=== PATIENT | female | born 1970 | race Caucasian/White ===

== ENCOUNTER 2023-08-10 12:11 | Observation (INO) | payer OTHER, SELFPAY ==
[2023-08-10] VITALS (23 sets, daily range): BP systolic 124–153; BP diastolic 76–98; PULSE 85–103; RESP 14–20; TEMP 36.3–36.8; O2SAT 90–100
--- NOTE | ~2023-08-10 | XR_ITS ---
Portable chest x-ray Comparison: None Clinical History: Numbness Findings: Lungs are clear, without focal consolidation or pleural effusion. Cardiomediastinal silho uette is unremarkable. Bones and soft tissues are unremarkable. Impression: Normal chest. Reviewed, dictated and finalized at location . HANDISE DIRECTOR Impression: Normal chest.
--- NOTE | ~2023-08-10 | MR_ITS ---
MRI of the brain Clinical History: TIA Technique: Axial and sagittal T1-weighted images were acquired. These were followed by axial T2-weigh christine, diffusion weighted, gradient, and FLAIR images. Following intravenous administration of 13 cc Mu ltiHance gadolinium, T1-weighted fat-sat imaging was performed in the axial and coronal planes. Findings: There is no acute infarct, intracranial hemorrhage, or mass lesion. There are several small focal hyperintense white matter lesions in the periventricular white matter. Ventricles and subarachnoid spaces are unremarkable. Orbits are unremarkable. Paranasal sinuses and m astoid air cells are clear. Major intracranial flow voids are intact. Sagittal midline structures are intact. No abnormal postcontrast enhancement. IMPRESSION: Probable minimal chronic microvascular ischemic change. Demyelinating disease would be a potential al ternative consideration. No other significant findings. Reviewed, dictated and finalized at [facility]. GE PLANT ATTENDANT IMPRESSION: Probable minimal chronic microvascular ischemic change. Demyelinating disease w ould be a potential alternative consideration. No other significant findings.
--- NOTE | ~2023-08-10 | CT_ITS ---
EXAMINATION: CTA BRAIN/CAROTID DATE: 08/10/2023 13:38 INDICATION: Right facial numbness TECHNIQUE: Computed tomographic angiography (CTA) of the head and neck was performed with 100 mL Omni paque-350 intravenous contrast. Multiplanar reconstructions and maximum intensity projection 3D-recon structions of the carotid arteries and of the intracranial arteries were created by the technologist on a separate workstation. Precontrast CT of the head was also obtained. Automated exposure control and iterative reconstruction technique were employed.The dose-length product was 1663.66 mGy-cm. COMPARISON: None. FINDINGS: Carotid arteries: The visualized aortic arch antegrade vessels arising from the arch are normal in caliber with no diss ection or evident atherosclerotic plaque. There is no evident plaque with 0% stenosis of the right an d left carotid bulbs relative to normal distal artery lumen diameter (NASCET criteria). Cervical port ion of the bilateral vertebral arteries are codominant with no evident atherosclerotic plaque. Visual ized superior mediastinum and cervical soft tissues are unremarkable. Mild dependent atelectasis in t he bilateral upper lobes and superior segments of the lower lobes. Head: No acute intracranial hemorrhage, acute infarction or abnormal extra axial fluid collection. Ventricl es are normal and symmetric. No mass/mass effect. No abnormally enhancing brain lesions. Symmetric sm all amount of dystrophic calcification at the bilateral lentiform nuclei. The orbits, paranasal sinus es and mastoid air cells are normal. Intracranial arteries: Small amount of atherosclerotic plaque at the bilateral carotid siphons greater on the right where th ere is up to 30% stenosis. There is no hemodynamically significant stenosis in the vertebral, basilar and internal carotid arteries. Vertebral arteries are codominant. There are no aneurysms identified. Both A1 and P1 segments are patent. There also appear to be very small patent anterior communicatin g and bilateral posterior communicating arteries. Cerebral arterial arborization appears symmetric. IMPRESSION: 1. No evident atherosclerotic plaque with 0% stenosis of the right and left carotid bulbs relative to normal distal artery lumen diameter (NASCET criteria). 2. Small amount of nonhemodynamically significant atherosclerotic plaque at the bilateral carotid sip hons. Otherwise unremarkable cerebral CT angiogram. 3. Normal aging brain with no acute intracranial process. Reviewed, dictated and finalized at location A. ING MIXER SUPERVISOR IMPRESSION: 1. No evident atherosclerotic plaque with 0% stenosis of the right and left car otid bulbs relative to normal distal artery lumen diameter (NASCET criteria). 2. Small amount of nonhemodynamically significant atherosclerotic plaque at the bilateral carotid siphons. Otherwise unremarkable cerebral CT angiogram. 3. Normal aging brain with no acute intracranial process.
--- NOTE | 2023-08-10 12:48 | ECG_ITS ---
Measurements Intervals [place] Rate: 90 P: 34 MN: 155 QRS: 26 QRSD: 76 T: 43 QT: 369 QTc: 453 Interpretive Statements SINUS RHYTHM NO PREVIOUS ECG AVAILABLE FOR COMPARISON Electronically Signed On 08-11-2023 13:21:20 SCHOOL TRANSPORTATION DIRECTOR by Rosa Isela Toure M.D.
[2023-08-10 13:13] LABS: Basophils Percent Auto 0.6 % (0.2-1.2); Eosinophils Absolute Auto 0.1 K/mm3 (0-0.3); Hematocrit 41.9 % (37.0-47.0); Hemoglobin 13.9 g/dL (12.0-15.0); Immature Granulocyte Absolute 0.02 K/mm3 (0.00-0.031); Immature Granulocyte Percent A 0.3 % (0-0.5); Lymphocytes Absolute Auto 1.73 K/mm3 (0.9-3.2); Lymphocytes Percent Auto 24.4 % (18.3-44.2); Mean Corpuscular HGB Conc 33.2 g/dl (32-36); Mean Corpuscular Hemoglobin 29.3 pg (26-34); Mean Corpuscular Volume 88.2 fl (80-100); Mean Platelet Volume 11.1 fl (7.4-10.4); Monocytes Absolute Auto 0.5 K/mm3 (0.1-0.6); Monocytes Percent Auto 6.6 % (2.6-8.5); Neutrophils Absolute Auto 4.7 K/mm3 (1.3-6.7); Neutrophils Percent Auto 66.1 % (45.5-73.1); Platelet Count Result 194 k/mm3 (150-375); Red Blood Count 4.75 M/mm3 (4.2-5.4); Red Cell Distribution Width 12.3 % (11.5-14.5); White Blood Count 7.1 K/mm3 (4.5-10.0)
[2023-08-10 13:25] LABS: INR 0.9; Prothrombin Time 12.8 Seconds (11.1-14.7)
--- NOTE | 2023-08-10 13:25 | ED.NEUROSD ---
HPI - Neuro Symptoms/Deficit General Chief Complaint: Neuro Symptoms/Deficit Stated Complaint: neuro sx Time Seen by Provider: 08/10/23 12:19 History of Present Illness HPI Narrative: patient is a 52-year-old female who presents to ER with concerns of stroke-like symptoms. Just prior to arrival patient had sudden onset right facial numbness as well as dizziness. Patient still experiencing some tingling to her right face. No facial droop. No slurred speech. No drift in arm or leg. See NIH stroke scale for full assessment. Patient reports similar symptoms back in December of this year when she was diagnosed with diabetes. Patient also endorses some mild tingling to her feet bilaterally the been ongoing for the last couple days. She is due for another is Injection today. Related Data Allergies Allergy/AdvReac Type Severity Reaction Status Date / Time clindamycin Allergy Hives Verified 08/10/23 12:23 Penicillins Allergy Hives Verified 08/10/23 12:23 Review of Systems Review of Systems: All systems reviewed & are unremarkable except as noted in HPI and below Constitutional: Constitutional: Reports no additional constitutional complaints ENT: Reports system reviewed and no additional complaints, except as documented Cardiovascular: Cardiovascular: Reports no additional cardiovascular complaints Respiratory: Respiratory: Reports no additional respiratory complaints Gastrointestinal: Gastrointestinal: Reports no additional gastrointestinal complaints Musculoskeletal: Musculoskeletal: Reports no additional musculoskeletal complaints Neurologic: Reports dizziness, Denies syncope, Denies headache(s), Denies focal weakness and Reports numbness PMFSH Past Medical History Medical History (Updated 08/10/23 @ 19:41 by Choco Art MD) Type 2 diabetes mellitus Surgical History Surgical History (Updated 08/10/23 @ 19:38 by Choco Art MD) No pertinent past surgical history Exam Narrative: GENERAL: Well-appearing, well-nourished, and in no acute distress. HEAD: Normocephalic, atraumatic. EYES: PERRLA and EOMI. ENT: Mucous membranes moist. CHEST: Clear to auscultation. No respiratory distress. HEART: Regular rate and rhythm. No murmur heard. Normal peripheral pulses. ABDOMEN: Soft, nontender, nondistended. EXTREMITIES: Normal range of motion. No edema. SKIN: Warm, dry, no rash. NEURO: No focal deficits. see NIH stroke scale. Alert and oriented x3. Sharp and soft touch intact in the face bilateral impaired PSYCH: Normal mood and affect. Course Course Emergency Course: patient resting comfortably. Consulted neurology recommends admit for observation to tele. MRI to be ordered. Patient aware of diagnosis and treatment plan. Patient neck insert a candidate for tPA as symptoms have resolved and her NIH stroke scale was 0. Vital Signs Vital signs: Vital Signs Temperature 98 F 08/10/23 12:10 Pulse Rate 95 08/10/23 12:10 Respiratory Rate 18 08/10/23 12:10 Blood Pressure 151/94 H 08/10/23 12:10 Pulse Oximetry 100 08/10/23 12:10 Oxygen Delivery Room Air 08/10/23 12:10 Temperature 98.0 F 08/10/23 19:15 Pulse Rate 87 08/10/23 19:15 Respiratory Rate 19 08/10/23 19:15 Blood Pressure 141/90 H 08/10/23 19:15 Pulse Oximetry 99 08/10/23 19:15 Oxygen Delivery Room Air 08/10/23 12:10 MDM - Neuro Symptoms/Deficit Lab Data 08/10/23 13:08 08/10/23 13:24 Labs: Lab Results 08/10/23 08/10/23 Range/Units 13:08 13:24 WBC 7.1 (4.5-10.0) K/mm3 RBC 4.75 (4.2-5.4) M/mm3 Hgb 13.9 (12.0-15.0) g/dL Hct 41.9 (37.0-47.0) % MCV 88.2 (80-100) fl MCH 29.3 (26-34) pg MCHC 33.2 (32-36) g/dl RDW 12.3 (11.5-14.5) % Plt Count 194 (150-375) k/mm3 MPV 11.1 H (7.4-10.4) fl Immature Gran % (Auto) 0.3 (0-0.5) % Neut % (Auto) 66.1 (45.5-73.1) % Lymph % (Auto) 24.4 (18.3-44.2) % [place] %
[2023-08-10 13:26] LABS: Partial Thromboplastin Time 26.1 SECONDS (22.3-36.8)
[2023-08-10 13:26] LABS: Estimated CRCL calculation 99 ml/min; Estimated Glomerular Filt Rate > 60
--- NOTE | 2023-08-10 13:48 | PC.NURSE ---
Pt refusing Zofran. States she is not nauseated. Dr. Art aware
[2023-08-10 14:08] LABS: Alanine Aminotransferase 86 U/L (6-35); Albumin Level 3.9 g/dL (3.5-5.1); Alkaline Phosphatase 99 U/L (38-126); Anion Gap 8 mmol/L (8-16); Aspartate Amino Transferase 59 U/L (14-36); Bilirubin,Total 0.5 mg/dL (0.2-1.3); Blood Urea Nitrogen 16 mg/dL (7-17); Calcium 8.6 mg/dL (8.4-10.2); Carbon Dioxide 26 mmol/L (22-30); Chloride 103 mmol/L (98-107); Estimated CRCL calculation 120 ml/min; Estimated Glomerular Filt Rate > 60; Glucose 131 mg/dL (65-110); Potassium 4.2 mmol/L (3.4-5.0); Sodium 137 mmol/L (137-145)
[2023-08-10 14:20] LABS: Troponin I < 0.012 ng/mL (0.000-0.034)
--- NOTE | 2023-08-10 15:28 | PC.NURSE ---
No change in neuro checks. Pt resting with reg resp.
--- NOTE | 2023-08-10 17:10 | PC.NURSE ---
Dinner tray given.
--- NOTE | 2023-08-10 20:14 | PC.NURSE ---
1st encounter. pt report received from Sherron BRITO. pt in no acute distress or SOB, airway patent, breathing even/unlabored. pt normal sinus on cardiac rehabilitation specialist. pt awaiting admit bed. pt to receive MRI and US or chest tomorrow. pt aware of plan.
--- NOTE | 2023-08-10 21:09 | ADMGEN ---
This patient, Kylah Flores, was admitted to Medical Room 252-01. Patient/family oriented to hospital policies and general routines including ID bracelet, bed and alarms, visiting hours, pain management, procedures, bathroom and other care routines, personal items, smoking policy, room service/diet, and visiting hours. Information on how to activate the Rapid Response Team has been discussed. Patient/Family are encouraged to report perceived risks to care and to ask questions if they do not understand what they are told or what they should do.
--- NOTE | 2023-08-10 23:18 | PM.IMHP ---
H&P: HPI History of Present Illness Date/Time: 08/10/23 13:30 Chief Complaint: Right side numbness and tingling. Narrative: This is a very pleasant 52-year-old female with type 2 diabetes mellitus who presented to the emergency department via EMS for evaluation of right-sided numbness and tingling. The patient provides the following history. Not long prior to arrival to the ED she was walking down steps when she suddenly felt weak on the right side of her body with numbness and tingling as well. The vision her right eye seemed to be blurry and she felt a bit disoriented. She struggled getting up to steps due to weakness. Symptoms mainly resolved by the time she came to the emergency department however she now has paresthesias and what she describes as a tight feeling in her legs from mid sanchez down to the feet. She denies vertigo, facial droop, and difficulty speaking. No palpitations or sensations of racing heart. She had a similar episode of right-sided facial tingling in December of this year for which she was seen at [facility] in [place] but it does not sound as though she had a workup done at that time. Vital signs have been stable since arrival to the ED though she does have some blood pressures with systolics as high as the 140s. CMP and CBC were reviewed and are pretty unremarkable aside from a mild rise in AST and ALT. CTA of the head and neck showed no acute intracranial process, large vessel occlusion, or significant atherosclerotic disease. She is being admitted in this setting for further evaluation. Review of Systems Review of Systems: Twelve systems were reviewed. She was diagnosed with diabetes in 2017 admits that it was poorly controlled up until this spring. She has lost weight and her most recent hemoglobin A1c was 7.1%. She has historically not had issues with peripheral neuropathy. No back pain. She had cold symptoms about a week or so ago which is nearly resolved. Except as documented, all other systems were reviewed and are negative. [facility] Past Medical History Medical History (Updated 08/10/23 @ 23:[address] PA-C) Type 2 diabetes mellitus Surgical History Surgical History (Updated 08/10/23 @ 23:[address] PA-C) History of 2 sections History of exploratory laparotomy History of hysterectomy Family History Family History Father Congestive heart failure Mother Diabetes mellitus Sibling Diabetes mellitus Social History Social History (Updated 08/10/23 @ 23:[address] PA-C) Social History: Surrogate medical decision maker: Addison Flores, spouse. Code status: Full code. Smoking status: Never smoker Alcohol intake: never Substance use: never Lack of Transportation: No Lack of Food: Never True Current Housing: I Have Housing Concerned About Future Housing: No Difficulty Paying Gas/Electric Bills: No Difficulty Paying for Meds: No Currently Unemployed: No Education: Bachelor's Degree Difficulty w/ Childcare or Family Care: No Spiritual care concerns: No Meds Home Medications and Allergies Home Medications Medication Instructions Recorded Confirmed Type rosuvastatin 5 mg tablet 5 mg PO DAILY 08/10/23 08/10/23 History semaglutide 0.25 mg or 0.5 mg (2 0.5 mg subcut WEEKLY 08/10/23 08/10/23 History mg/3 mL) subcutaneous pen injector (Ozempic) Allergies Allergy/AdvReac Type Severity Reaction Status Date / Time clindamycin Allergy Hives Verified 08/10/23 12:23 Penicillins Allergy Hives Verified 08/10/23 12:23 Vital Signs Vital Signs - 24 hr 08/10/23 12:10 08/10/23 13:00 08/10/23 12:18 Temperature 98 F 98.2 F Pulse Rate 95 90 103 H Respiratory Rate 18 18 Blood Pressure 151/94 H 151/94 H Pulse Oximetry 100 100 Oxygen Delivery Room Air 08/10/23 12:30 08/10/23 13:44 08/10/23 13:57 Temperature Pulse Rate 91 94 88 Respiratory
[2023-08-11] VITALS: PULSE 97
[2023-08-11 04:00] VITALS: PULSE 83
[2023-08-11 04:23] VITALS: BP 120/76; PULSE 90; RESP 18; TEMP 36.4; O2SAT 96
[2023-08-11 06:10] LABS: Anion Gap 8 mmol/L (8-16); Blood Urea Nitrogen 11 mg/dL (7-17); Calcium 8.6 mg/dL (8.4-10.2); Carbon Dioxide 24 mmol/L (22-30); Chloride 104 mmol/L (98-107); Cholesterol 168 mg/dL (0-200); Estimated CRCL calculation 120 ml/min; Estimated Glomerular Filt Rate > 60; Glucose 122 mg/dL (65-110); HDL Direct 46 mg/dL; Magnesium 2.1 mg/dL (1.6-2.3); Potassium 3.6 mmol/L (3.4-5.0); Sodium 136 mmol/L (137-145); Triglycerides 117 mg/dL (<150)
[2023-08-11 06:21] LABS: LDL Cholesterol Direct 80 mg/dL
--- NOTE | 2023-08-11 07:27 | PM.IMPN ---
Progress Note: A&P Assessment and Plan (1) Right sided weakness: Code(s): R53.1 - Weakness Status: Acute Assessment and Plan: Brief episode of right sided weakness with lasting paraesthesia. CTA negative Brain MRI and ECHO pending Started on ASA 81 mg Lipid level pending B12 level pending--concerns for neuropathy. May need EMG as outpatient. A1C pending Neurology consult with rec's appreciated 08/11: Starting on plavix 75 mg PO daily, increased Crestor to 20 mg PO daily with LDL goal 65, ASA 81 mg daily. Ordered ECHO and waiting for that to be resulted. Awaiting neurology note with further rec's. Likely will d/c in the am as I suspect the ECHO results will not be posted tonight. Brain MRI shows probable minimal chronic microvascular ischemic changes. (2) Paresthesias: Code(s): R20.2 - Paresthesia of skin Status: Acute Assessment and Plan: checking B12 level, may need EMG as outpatient (3) Elevated blood pressure reading: Code(s): R03.0 - Elevated blood-pressure reading, without diagnosis of hypertension Status: Acute Assessment and Plan: Blood pressures initially 140/90s on admission 120-130's SBP the last 24 hours Monitor daily (4) Type 2 diabetes mellitus: Code(s): E11.9 - Type 2 diabetes mellitus without complications Status: Acute Assessment and Plan: On Semaglutide SSI, accu checks, and hypoglycemia protocol AC1 6.5% 08/11: She reports her A1c was 11% in December of this year. She has been very serious about her DM and her new A1c reflects this. Plan Feeding:DM diet Analgesia:norco Thromboembolic prophylaxis: scd Ulcer prophylaxis: na Glycemic control: SSI Bowel regimen: na Lines: PIV Antibiotics:na Disposition: home when medically ready Subjective Date/time seen: 08/11/23 07:27 Interval history: HPI obtained from the chart, This is a very pleasant 52-year-old female with type 2 diabetes mellitus who presented to the emergency department via EMS for evaluation of right-sided numbness and tingling. The patient provides the following history. Not long prior to arrival to the ED she was walking down steps when she suddenly felt weak on the right side of her body with numbness and tingling as well. The vision her right eye seemed to be blurry and she felt a bit disoriented. She struggled getting up to steps due to weakness. Symptoms mainly resolved by the time she came to the emergency department however she now has paresthesias and what she describes as a tight feeling in her legs from mid sanchez down to the feet. She denies vertigo, facial droop, and difficulty speaking. No palpitations or sensations of racing heart. She had a similar episode of right-sided facial tingling in December of this year for which she was seen at [facility] in [place] but it does not sound as though she had a workup done at that time. Vital signs have been stable since arrival to the ED though she does have some blood pressures with systolics as high as the 140s. CMP and CBC were reviewed and are pretty unremarkable aside from a mild rise in AST and ALT. CTA of the head and neck showed no acute intracranial process, large vessel occlusion, or significant atherosclerotic disease. She is being admitted in this setting for further evaluation. 08/11: Patient is doing well today. No further symptoms like when she presented. I spoke with her and her regarding TIA treatment is Crestor, aspirin, and Plavix. Review of Systems Review of Systems: All systems reviewed & are unremarkable except as noted in HPI and below Exam Narrative: General: well appearing, well developed, well nourished, appears stated age. HEENT: normocephalic, atraumatic. Mucous membranes moist. EOMI, PERRLA, bilateral sclera anicteric, no conjunctival injection. Neck supple without JVD, lymphadenopathy, or bruit. Respiratory: clear to auscultation bilaterally. No rale
[2023-08-11 08:31] LABS: Glucose Point of Care 132 mg/dl (65-105)
[2023-08-11] MEDS: ROSUVASTATIN 5 MG TABLET PO (09:55)
[2023-08-11] MEDS: ASPIRIN 81 MG ENTERIC TABLET PO (09:55)
[2023-08-11 11:17] LABS: Hemoglobin A1C 6.5 % (<5.7)
[2023-08-11 12:01] LABS: Glucose Point of Care 135 mg/dl (65-105)
[2023-08-11 13:52] LABS: Folic Acid 5.4 ng/mL (2.76->20)
[2023-08-11 14:13] VITALS: BP 117/75; PULSE 88; RESP 16; TEMP 36.3; O2SAT 98
[2023-08-11] MEDS: CLOPIDOGREL BISULFATE 75 MG TABLET PO (15:17)
[2023-08-11 17:06] LABS: Glucose Point of Care 138 mg/dl (65-105)
[2023-08-11 20:00] VITALS: PULSE 94; RESP 20; O2SAT 97
[2023-08-11 20:51] VITALS: BP 114/75; PULSE 94; RESP 20; TEMP 36.4; O2SAT 97
[2023-08-11 21:39] LABS: SARS-CoV-2 RNA PCR Negative (Negative)
--- NOTE | 2023-08-12 | ECHO_ITS ---
Patient Info Name: Kylah Flores Age: 52 years : 1970 Gender: Female Ht: 64 in Wt: 147 lbs BSA: 1.75 m2 HR: 82 bpm BP: 112 / 69 mmHg Heart Rhythm: Sinus Rhythm Technical Quality: Good Exam Date: 08/12/2023 10:46 AM Exam Location: Echo Lab Patient Status: Inpatient Admit Date: 08/10/2023 Staff Ordering Physician: Ivory Deutsch APRN Sales Support Rep: Maura Devine RDCS Attending Provider: Ubaldo Lamb MD Referring Physician: La Nena WHITLEY; Exam Type: CA echo doppler w bubble study Study Info Indications - TIA Complete two-dimensional, color flow and Doppler transthoracic echocardiogram is performed with agitated saline. Contrast/Agitated Saline Contrast/Ag. Saline: Agitated Saline Amount: 20.00 ml Summary 1. Left ventricular chamber dimension is normal. 2. Left ventricular systolic function is normal, estimated at 65-70%. 3. The left ventricular diastolic function is grade I diastolic dysfunction. 4. Right ventricular systolic function is normal. 5. Intact interatrial septum visualized by color flow and agitated saline imaging. Negative bubble study at both rest and with Valsalva. Left Ventricle Left ventricular chamber dimension is normal. Left ventricular systolic function is normal, estimated at 65-70%. There is no increased left ventricular wall thickness. The left ventricular diastolic function is grade I diastolic dysfunction. Right Ventricle Right ventricular chamber dimension is normal. Right ventricular systolic function is normal. Left Atria Left atrial chamber dimension is normal. Right Atria Right atrial chamber dimension is normal. Atrial Septum Intact interatrial septum visualized by color flow and agitated saline imaging. Negative bubble study at both rest and with Valsalva. Aortic Valve The aortic valve is trileaflet. There is no aortic valve stenosis. There is no aortic valve regurgitation. Pulmonic Valve The pulmonic valve is not well visualized. There is trace pulmonic regurgitation. Mitral Valve There is trace mitral valve regurgitation. Tricuspid Valve There is trace tricuspid valve regurgitation. Pericardium/Pleural There is no pericardial effusion. Inferior Vena Cava Normal inferior vena cava with >50% collapse upon inspiration consistent with normal right atrial pressure, 3 mmHg. Aorta The aortic root size at the sinus of Valsalva is normal. Left Ventricular Outflow Tract Name Value Normal LVOT 2D LVOT Diameter 1.8 cm LVOT Doppler LVOT Peak Gradient 3 mmHg LVOT Mean Gradient 2 mmHg LVOT VTI 19 cm LVOT VTI/AV VTI Ratio 0.9 LVOT Stroke Volume 51 ml LVOT CO 4.3 l/min LVOT CI 2.5 l/min/m2 Pulmonic Valve Name Value Normal RVOT Doppler RVOT
[2023-08-12 02:41] LABS: Glucose Point of Care 157 mg/dl (65-105)
[2023-08-12 04:46] VITALS: BP 112/69; PULSE 82; RESP 18; TEMP 36.3; O2SAT 97
[2023-08-12 06:08] LABS: Hematocrit 43.2 % (37.0-47.0); Hemoglobin 14.1 g/dL (12.0-15.0); Mean Corpuscular HGB Conc 32.6 g/dl (32-36); Mean Corpuscular Hemoglobin 28.7 pg (26-34); Mean Platelet Volume 11.9 fl (7.4-10.4); Platelet Count Result 189 k/mm3 (150-375); Red Blood Count 4.91 M/mm3 (4.2-5.4); Red Cell Distribution Width 12.3 % (11.5-14.5); White Blood Count 8.5 K/mm3 (4.5-10.0)
[2023-08-12 06:18] LABS: Anion Gap 7 mmol/L (8-16); Blood Urea Nitrogen 11 mg/dL (7-17); Calcium 8.9 mg/dL (8.4-10.2); Carbon Dioxide 28 mmol/L (22-30); Chloride 101 mmol/L (98-107); Estimated CRCL calculation 99 ml/min; Estimated Glomerular Filt Rate > 60; Glucose 122 mg/dL (65-110); Potassium 3.7 mmol/L (3.4-5.0); Sodium 136 mmol/L (137-145)
[2023-08-12 08:15] LABS: Glucose Point of Care 155 mg/dl (65-105)
[2023-08-12] MEDS: ROSUVASTATIN 20 MG TABLET PO (08:21)
[2023-08-12] MEDS: CLOPIDOGREL BISULFATE 75 MG TABLET PO (08:21)
[2023-08-12] MEDS: ASPIRIN 81 MG ENTERIC TABLET PO (08:21)
[2023-08-12 08:25] VITALS: RESP 18; O2SAT 97
[2023-08-12 09:42] VITALS: BP 137/86; PULSE 101; RESP 20; O2SAT 97
[2023-08-12 09:46] LABS: Glucose Point of Care 218 mg/dl (65-105)
[2023-08-12 11:53] LABS: Glucose Point of Care 176 mg/dl (65-105)
[2023-08-12 13:46] VITALS: BP 119/83; PULSE 93; RESP 18; TEMP 36.6; O2SAT 98
--- NOTE | 2023-08-12 15:07 | WPDNEURCNPN ---
Assessment and Plan Assessment and plan (1) Type 2 diabetes mellitus: Code(s): E11.9 - Type 2 diabetes mellitus without complications Status: Acute (2) Transient cerebral ischemia: Code(s): G45.9 - Transient cerebral ischemic attack, unspecified Status: Acute Plan 1. TIA with normal MRI of the brain, normal CTA of the brain and neck without aneurysm or vascular disease, echocardiogram done but the report at this stage is not available. 2. Patient to continue Plavix 75mg daily for 3 weeks along with the aspirin 81mg daily for long time and cholesterol-lowering medications she is taking rosuvastatin 5mg daily which can be increased to10mg daily. 3. Patient has been explained about the possibility of autonomic neuropathy resulting in the dizziness with postural change to that she can handle that ongoing process. Consult date: 08/12/23 HPI: Kylah Flores is a 52 year old female admitted to the hospital through the emergency room where she presented with the concerns of stroke-like symptoms just prior to arrival to the ER patient experienced right facial numbness along with the dizziness the numbness from the on the right side of her face without any facial droop or slurred speech and without any weakness or numbness of the upper and lower extremities she has had the same symptoms in December of this year when she was diagnosed to have diabetes mellitus she has ongoing history of being allergic to clindamycin and penicillin. Her initial examination in the emergency room was normal with normal vital signs except blood pressure of 151/94, normal CBC, and normal routine lab, initial chest x-ray was negative, initial CTA of the head and neck was normal with no stenosis or aneurysm his stroke scale was only 1 she has never smoker, never alcohol intake, and has been taking psammoma glue tied 0.25mg or 0.5mg subQ weekly [facility] Past Medical History Medical History (Updated 08/10/23 @ 23:[address] PA-C) Type 2 diabetes mellitus Surgical History Surgical History (Updated 08/10/23 @ 23:[address] PA-C) History of 2 sections History of exploratory laparotomy History of hysterectomy Family History Family History Father Congestive heart failure Mother Diabetes mellitus Sibling Diabetes mellitus Social History Social History (Updated 08/10/23 @ 23:[address] PA-C) Social History: Surrogate medical decision maker: Addison Flores, spouse. Code status: Full code. Smoking status: Never smoker Alcohol intake: never Substance use: never Lack of Transportation: No Lack of Food: Never True Current Housing: I Have Housing Concerned About Future Housing: No Difficulty Paying Gas/Electric Bills: No Difficulty Paying for Meds: No Currently Unemployed: No Education: Bachelor's Degree Difficulty w/ Childcare or Family Care: No Spiritual care concerns: No Meds Home Medications and Allergies Home Medications Medication Instructions Recorded Confirmed Type rosuvastatin 5 mg tablet 5 mg PO DAILY 08/10/23 08/10/23 History semaglutide 0.25 mg or 0.5 mg (2 0.5 mg subcut WEEKLY 08/10/23 08/10/23 History mg/3 mL) subcutaneous pen injector (Ozempic) Allergies Allergy/AdvReac Type Severity Reaction Status Date / Time clindamycin Allergy Hives Verified 08/10/23 12:23 Penicillins Allergy Hives Verified 08/10/23 12:23 Vital Signs Vital Signs - 24 hr 08/11/23 20:51 08/11/23 20:00 08/12/23 04:46 Temperature 36.4 C 36.3 C L Pulse Rate 94 94 82 Respiratory Rate 20 20 18 Blood Pressure 114/75 112/69 Pulse Oximetry 97 97 97 Oxygen Delivery Room Air 08/12/23 08:25 08/12/23 09:42 08/12/23 13:46 Temperature 36.6 C Pulse Rate 101 H 93 Respiratory Rate 18 20 18 Blood Pressure 137/86 119/83 Pulse Oximetry 97 97 98 Oxygen Delivery Room Air Exam Na
--- NOTE | 2023-08-12 15:37 | PM.DS ---
DS: Admitting Diagnosis Discharge Date 08/12/23 Admitting Diagnosis right-sided weakness DS: Discharge Diagnosis Discharge Diagnosis (1) Right sided weakness: Code(s): R53.1 - Weakness Status: Acute Assessment and Plan: Brief episode of right sided weakness with lasting paraesthesia. CTA negative Brain MRI showed probable minimal chronic microvascular ischemic changes ECHO normal Started on ASA 81 mg B12 level WNL--concerns for neuropathy. May need EMG as outpatient. Neurology consult and cleared for d/c home continuing Plavix 75 mg daily for 3 weeks, aspirin daily and increased Crestor to 20 mg PO daily with LDL goal 65. (2) Paresthesias: Code(s): R20.2 - Paresthesia of skin Status: Acute Assessment and Plan: may need EMG as outpatient if continues (3) Elevated blood pressure reading: Code(s): R03.0 - Elevated blood-pressure reading, without diagnosis of hypertension Status: Acute Assessment and Plan: Blood pressures initially 140/90s on admission reviewed and stable (4) Type 2 diabetes mellitus: Code(s): E11.9 - Type 2 diabetes mellitus without complications Status: Acute Assessment and Plan: Continue home Semaglutide DS: Summary Hospital Course Hospital Course: Patient is a 52-year-old female with type 2 diabetes mellitus who presented to the emergency department via EMS for evaluation of right-sided numbness and tingling. The patient provides the following history. Not long prior to arrival to the ED she was walking down steps when she suddenly felt weak on the right side of her body with numbness and tingling as well. The vision her right eye seemed to be blurry and she felt a bit disoriented. She struggled getting up to steps due to weakness. Symptoms mainly resolved by the time she came to the emergency department however she now has paresthesias and what she describes as a tight feeling in her legs from mid sanchez down to the feet. She denies vertigo, facial droop, and difficulty speaking. No palpitations or sensations of racing heart. She had a similar episode of right-sided facial tingling in December of this year for which she was seen at [facility] in [place] but it does not sound as though she had a workup done at that time. Vital signs have been stable since arrival to the ED though she does have some blood pressures with systolics as high as the 140s. CMP and CBC were reviewed and are pretty unremarkable aside from a mild rise in AST and ALT. CTA of the head and neck showed no acute intracranial process, large vessel occlusion, or significant atherosclerotic disease. She is reporting improvement today. She is up walking around her room and ready to go home. Neuro consulted and recommendations will be followed at d/c. ECHO was normal, she may need further follow up should her neuropathy continue. Discussed use of CoQ10 and magnesium if she develops muscle aching due to increased dose of statin. Status at Discharge Functional status at discharge: independent ambulation Overall status at discharge: patient is back to baseline Time Spent with Patient Time attestation: Total time spent providing and/or coordinating discharge services: Exam Narrative: General: well appearing, well developed, well nourished, appears stated age. HEENT: normocephalic, atraumatic. Mucous membranes moist. EOMI, PERRLA. Respiratory: clear to auscultation bilaterally. No rales/chronic/wheezes. Cardiovascular: RRR, normal S1-S2 upon auscultation. No murmurs, rubs, or clicks. Abdomen: Soft, flat, no pulsatile masses, non-distended and non-tender. No rebound, no guarding. No CVA tenderness, no hepatosplenomegaly. Bowel sounds present to all four quadrants. Extremities: No cyanosis, clubbing, or edema present. Pulses are palpable 2/2. Active ROM to all four extremities. Neuro: Alert and orientated x 4. PERRLA. Cranial nerves 2-12 intact without focal deficit. Ski
== END 2023-08-12 16:15 | disposition home or self-care (01) ==
LOC: ANHED 12:54 → ANH3MEDSUR 19:41 → ANH2MED 20:55 → ANH3MEDSUR 08-13 08:02
PROVIDERS: Nurse Practitioner Acute Care; Physician Assistant; Student in an Organized Health Care Education/Training Program; Admitting Provider Family Medicine; Emergency Provider Emergency Medicine; PCP Nurse Practitioner Family; Visit Provider Internal Medicine
DX: G45.9 Transient cerebral ischemic attack, unspecified (principal); E11.9 Type 2 diabetes mellitus without complications; R03.0 Elevated blood-pressure reading, without diagnosis of hypertension; I51.89 Other ill-defined heart diseases; Z20.822 Contact with and (suspected) exposure to COVID-19; Z79.85 Long-term (current) use of injectable non-insulin antidiabetic drugs
CPT/HCPCS: 36415; 70496; 70498; 70553; 71045; 80048; 80053; 80061; 82607; 82746; 82948; 83036; 83735; 84443; 84484; 85025; 85027; 85610; 85730; 87635; 93005; 93306; 96375; 99285; A9270; A9577; G0378; Q9967